=== PATIENT | female | born 1995 | race Two or more races ===

== ENCOUNTER 2016-09-12 22:55 | Outpatient (CLI) | payer OTHER ==
[2016-09-13 00:23] VITALS: BMI 30.5
== END 2016-09-13 00:07 | disposition home or self-care (01) ==
LOC: FBC 22:55 → FBCOUT 22:55
PROVIDERS: ATTEND Family Medicine
DX: O36.8190 Decreased fetal movements, unspecified trimester, not applicable or unspecified (principal); Z3A.00 Weeks of gestation of pregnancy not specified

== ENCOUNTER 2016-10-17 22:52 | Inpatient (IN) | payer OTHER ==
[2016-10-17 23:59] VITALS: BMI 31.1
[2016-10-18] MEDS ORDERED: OXYTOCIN IN LR 500 ML IV ONE ×2 (02:00→02:08)
[2016-10-18] MEDS ORDERED: IV START KIT ONE (02:07)
[2016-10-18] MEDS ORDERED: OXYTOCIN 10 UNITS/ML VIAL ONE (02:07)
[2016-10-18] MEDS ORDERED: LIDOCAINE 1% (PRES FREE) 30 ML VIAL ONE (02:08)
[2016-10-18] MEDS ORDERED: EPIDURAL PUMP SET ONE (02:08)
[2016-10-18] MEDS ORDERED: FENTANYL/ROPIVACAINE EPIDURAL 250 ML EP ONE (02:08)
[2016-10-18] MEDS ORDERED: PUMP TUBING ONE (02:08)
[2016-10-18] MEDS ORDERED: LIDOCAINE Viscous 2% 15 ML UDCUP ONE (02:08)
[2016-10-18] MEDS ORDERED: MINERAL OIL 25 ML BOT ONE (02:08)
[2016-10-18 02:39] LABS: HEMATOCRIT 36.8 % (37.0-47.0); HEMOGLOBIN 12.8 gm/l (12.0-16.0); MEAN CELL VOLUME 83.4 fl (81.0-99.0); MEAN CORPUSCULAR HGB CONC 34.8 g/dl (33.0-37.0)
[2016-10-18] MEDS: LACTATED RINGERS 1,000 ML IV PRN ×2 (02:50→04:18)
[2016-10-18] MEDS ORDERED: LACTATED RINGERS 1,000 ML IV SCH ×2 (03:00→11:45)
[2016-10-18] MEDS ORDERED: EPIDURAL PROCEDURE TRAY ONE (03:06)
[2016-10-18] MEDS ORDERED: BUPIVACAINE 0.25% (PRES FREE) 30 ML VIAL ONE (03:06)
[2016-10-18] MEDS ORDERED: METOCLOPRAMIDE HCL 5 MG/ML 2ML VIAL IV PRN (03:59)
[2016-10-18] MEDS ORDERED: LACTATED RINGERS 500 ML IV PRN (03:59)
[2016-10-18] MEDS ORDERED: NALOXONE HCL 0.4 MG/ML VIAL IV PRN (03:59)
[2016-10-18] MEDS ORDERED: NALBUPHINE HCL 20 MG/ML AMP IV PRN (03:59)
[2016-10-18] MEDS ORDERED: SODIUM CHLORIDE 0.9% 500 ML IV PRN (03:59)
[2016-10-18] MEDS ORDERED: EPHEDRINE SULFATE 50 MG/ML 1ML VIAL IV PRN (03:59)
[2016-10-18] MEDS ORDERED: DIPHENHYDRAMINE HCL 50 MG/1 ML VIAL IV PRN (03:59)
[2016-10-18] MEDS ORDERED: ONDANSETRON 4 MG/2ML 2 ML VIAL IV PRN (03:59)
[2016-10-18] MEDS ORDERED: FENTANYL/ROPIVACAINE EPIDURAL 250 ML EP SCH (04:00)
--- NOTE | 2016-10-18 05:26 | PCMAN ---
OB Admission Note - History : 1 Term: 0 : 0 Abortions (S&E): 0 Livin EDC:: 10/16/16 Gestational Age (weeks): 40 Days (#/7): 2 Admit Cervical Dilation:: 7 Admit Cervical Effacement (%):: 100 Admit Station:: 0 Admit Presentaton:: vertex Membrane Status: Ruptured Rupture (Date): 10/17/16 Rupture (Time): 13:00 Membranes Comment:: clear Labor Onset (Date): 10/18/16 Labor Onset (Time): 02:00 Contractions: Yes Contraction Frequency:: Q2-5 mins Heart Rate:: 130 Status:: Category 2, minimal variability, no accels, no decels Summary of Course:: 21 yo at 40 wks 2/7 days, presented to triage in active labor. SVE very difficult, patient very tense. Per RN, possibly 3cm. Patient desired epidural placement. SVE rechecked after epidural 7100/0. GBS neg. States had SROM at 1300 on 10/17. Had low lying placenta early in , resolved at 23 wks. Had CL of 2.6 on 06/03, started on progesterone PMHx: stye R eye PSHx: neg SOCHx: denies tob, etoh or illicit drugs Meds: PNV OBHx: primigravid - Labs Blood Type: O (+) positive Hct/Hgb:: 36.0/12.0 Rubella Status: Immune GBS Status: Negative Abnormal Labs: Other (pos PPD, but Quantiferon Gold was negative) Other Labs:: Antibody neg HIV NR HBSAg NR RPR NR GC/CT neg 1hr 111 Declined quad Dating by 9 wk US, confirmed with 20 wk scan. Flu vaccine 05/07/2016 Tdap 08/01/2016 - Review of Systems c/o Ctx, LOF. Denies HENSON, visual changes, RUQ pain, SOB. - Physical Exam General: Afebrile, No Acute Distress Neurological: Grossly Intact, Normal Speech HEENT: Atraumatic Lungs: Clear to Auscultation Bilaterally Cardiovascular: Regular Rate and Rhythm, Normal S1, Normal S2 Genitourinary: Normal Female Genitalia Skin: Normal Color, Warm, Dry - Problems (1) Active labor at term Status: Acute Code: [id number]/Plan: 21 yo at 40 2/7 wks, SROM, active labor, GBS neg. - comfortable with epidural in place, resting - expectant management
[2016-10-18] MEDS: LACTATED RINGERS 1,000 ML IV SCH ×3 (10:17→18:20)
[2016-10-18] MEDS ORDERED: OXYTOCIN IN LR 500 ML IV PRN (11:32)
[2016-10-18] MEDS ORDERED: LIDOCAINE 1% (PRES FREE) 30 ML VIAL IF ONE (12:30)
--- NOTE | 2016-10-18 13:35 | PCMDEL ---
Delivery Note - Labor 1st stage (hr/min):: 7h7m 2nd stage (hr/min):: 3h21m 3rd stage (hr/min):: 6m Total (hr/min):: 10h34m Pushed (hr/min):: 2h28m - Delivery Delivery (Date): 10/18/16 Delivery (Time): 12:28 Gender: Female Position: OA Umbilical Cord: 3 Vessel, Nuchal Cord Delayed Cord Clamping:: 2-3 min 1 Minute Total: 9 5 Minute Total: 9 Placenta:: intact EBL:: 400ml Perineum:: 3rd degree perineal repaired in standard fashion, R sulcal tear reapproximated with figure of 8, then running locked sutures. Suture:: 3-0 Vicryl x 3 Anesthesia/Meds:: epidural/local lidocaine Length ROM:: 11h28m Comments:: Pt delivered viable female infant over intact perineum. Head/shoulders easily delivered through a loose nuchal cord. infant placed on maternal abdomen with vigorous cry. Cord clamping delayed by 2 minutes and cut. Local lidocaine was used prior to the repair, as pt did not tolerate any touching of her labia or perineum. A 3rd degree lac was repaired in standard fashion: first fibers of external sphincter were reapproximated with 4 separate sutures: posteriorly, inferiorly, superiorly, and anteriorly. Then the remaining lac was repaired in standard fashion. A R sulchal lac was repaired with figure of eight, then continuous locking sutures for hemostasis. Bladder was emptied with red lisette catheter. Given pt intolerance to exam, vaginal packing was placed for hemostasis. EBL 400cc.
[2016-10-18] MEDS ORDERED: BENZOCAINE/MENTHOL 60 APPLIC/BOT TP PRN (13:53)
[2016-10-18] MEDS ORDERED: LANOLIN 50 APPLIC/7G TUBE TP PRN (13:53)
[2016-10-18] MEDS ORDERED: OXYCODONE HCL 5 MG TABLET PO PRN (13:53)
[2016-10-18] MEDS ORDERED: HYDROCODONE/ACETAMINOPHEN 5/325MG TABLET PO PRN (13:53)
[2016-10-18] MEDS: IBUPROFEN 600 MG TABLET PO PRN ×2 (14:47→21:02)
--- NOTE | 2016-10-18 15:54 | PDOC36 ---
Provider Note Subject: Vaginal packing easily removed, no active bleeding visualized.
[2016-10-19 06:43] LABS: HEMATOCRIT 31.1 % (37.0-47.0); HEMOGLOBIN 10.7 gm/l (12.0-16.0)
[2016-10-19] MEDS: IBUPROFEN 600 MG TABLET PO PRN (10:07)
[2016-10-19] MEDS: DOCUSATE SODIUM 100 MG CAPSULE PO SCH (10:07)
--- NOTE | 2016-10-19 12:11 | PDOC44 ---
- Subjective Day: 1 with difficulty: no colostrum with hand expression, pt working closely with . Using nipple shield. Supplementing with formula, does want to continue working on . Reports Pain Tolerable, Reports - Objective Temp Pulse Resp BP Pulse Ox 99.4 F 91 18 133/89 10/19/16 09:21 10/19/16 09:21 10/19/16 09:21 10/19/16 09:21 Lab Results 10/19/16 06:00 Hgb 10.7 L D Hct 31.1 L Current Medications Generic Name Dose Route Start Last Admin Trade Name Freq PRN Reason Stop Dose Admin Acetaminophen/Hydrocodone Bitart 1 - 2 tab 10/18/16 13:53 [place] 5/325 PO Q4H PRN Pain (Moderate) Benzocaine/Menthol 1 applic 10/18/16 13:53 Dermoplast TP PRN PRN Patient Comfort Docusate Sodium 100 mg 10/19/16 09:00 10/19/16 10:07 Colace PO 100 mg DAILY IRMA Administration Emollient Ointment 1 applic 10/18/16 13:53 10/19/16 10:08 Nyn-C-[id number] TP 1 tube PRN PRN Administration sore nipples Ibuprofen 600 mg 10/18/16 13:53 10/19/16 10:07 Motrin PO 600 mg Q6H PRN Administration Pain (Mild) Oxycodone HCl 5 - 10 mg 10/18/16 13:53 Roxicodone PO Q3H PRN Pain (Severe) Sodium Chloride 10 ml 10/18/16 13:53 Normal Saline 10ml Flush IV PRN PRN IV Flush - Physical Exam General: Afebrile Psych/Mental Status: Bonding Well Neurological: Grossly Intact, Alert HEENT: Atraumatic, EOMI Lungs: Clear to Auscultation Bilaterally, Normal Air Movement Cardiovascular: Regular Rate and Rhythm, Normal S1, Normal S2, No Murmur Breast: Soft, Skin intact, Nipples Intact Fundus: Firm, Midline, Below Umbilicus Lochia: Light - Problems:Assessment/Plan (1) Normal vaginal delivery Status: AcuteAssessment/Plan: PPD#1, doing well difficulty: working closely with , supplementing with formula Otherwise doing well, continue routine pp care Anticipate dc home tomorrow (2) Third degree perineal laceration Status: AcuteAssessment/Plan: Normal BM today Continue stool softener, sitz baths Disposition: Stable, Anticipate DC Home Tomorrow
[2016-10-20 08:53] VITALS: BP 129/75
[2016-10-20] MEDS: DOCUSATE SODIUM 100 MG CAPSULE PO SCH (10:03)
--- NOTE | 2016-10-20 11:27 | PDOC39B ---
Hospital Course: ADMIT DATE: 10/18/16 DISCHARGE DATE: 10/20/16 ADMISSION DIAGNOSES: term iup, active labor. PROCEDURES: HISTORY OF PRESENT ILLNESS: 21 year old G1 T0 L0 at 40 weeks 2 days presenting with labor. HOSPITAL COURSE: The patient presented in labor and progressed to with epidural anesthesia. By day of discharge the patient is ambulating, eating, voiding, and passing flatus without difficulty. Pain is controlled and lochia is appropriate. She is bottle feeding and has decided not to breast feed. - Physical Exam Vital Signs: Temp Pulse Resp BP Pulse Ox 98.6 F 90 12 129/75 10/20/16 08:35 10/20/16 08:35 10/20/16 08:35 10/20/16 08:35 General: No Acute Distress Psych/Mental Status: Mood/Affect Appropriate Neurological: Alert Lungs: Clear to Auscultation Bilaterally Cardiovascular: Regular Rate and Rhythm, No Murmur Fundus: Firm, Midline, At Umbilicus Abdomen: Normal Bowel Sounds Extremities: Edema, No Tenderness Skin: Warm, Dry, No Rash - Discharge Diagnosis (1) Normal vaginal delivery Status: AcuteAssessment/Plan: PPD#2, doing well difficulty: working closely with , supplementing with formula but has now decided to do all formula. Otherwise doing well, continue routine pp care dc home today, f/u at 6 week check. - Discharge Plan Condition: Good Disposition: Home Prescriptions: Docusate Sodium [Colace] 100 mg PO DAILY 30 Days Ibuprofen [IBUPROFEN 600 MG TABLET (SHF)] 1 tab PO Q6H PRN 30 Days PRN Reason: Pain Follow-Up: Hailee Koehler MD [Primary Care Provider] - In 6 weeks
[2016-10-20] MEDS ORDERED: IV START KIT ONE (15:16)
== END 2016-10-20 12:42 | disposition home or self-care (01) | DRG 775 ==
LOC: FBCOUT 22:52 → FBC 22:52 → FBCOUT 10-18 01:56
PROVIDERS: ADMIT Family Medicine; ATTEND Family Medicine
PROC: 10E0XZZ Delivery of Products of Conception, External Approach (ICD-10-PCS; principal; 2016-10-18)
PROC: 0DQR0ZZ Repair Anal Sphincter, Open Approach (ICD-10-PCS; 2016-10-18)
PROC: 00HU33Z Insertion of Infusion Device into Spinal Canal, Percutaneous Approach (ICD-10-PCS; 2016-10-18)
DX: O69.81X0 Labor and delivery complicated by cord around neck, without compression, not applicable or unspecified (principal); O70.20 Third degree perineal laceration during delivery, unspecified; Z3A.40 40 weeks gestation of pregnancy; Z37.0 Single live birth